=== PATIENT | female | born 1955 | race Caucasian/White ===

== ENCOUNTER 2024-03-15 06:29 | Day surgery (SDC) | payer MEDICARE ==
[2024-03-15] VITALS (11 sets, daily range): BP systolic 212–246; BP diastolic 88–115; PULSE 53–69; TEMP 97
[~2024-03-15] VITALS: Ht 167.6 cm; Wt 154.8 kg
[~2024-03-15 06:29] MED LIST: ALDACTONE 25MG25 M1 PO; ALEVE 220MG220 MG PO; ALLEGRA 180MG180 MG PO; BENADRYL25 M2 PO; HYDRODIURIL50 MG PO; KLOR-CON 88 MEQ PO; LASIX 20MG TABL20 MG PO; LEXAPRO20 MG PO; LODINE400 MG PO; NASONEX SPRAY17 GM NS; RT ADVAIR 228 DISKUS IH; SINGULAIR 110 MG/TAB PO; SKELAXIN 800MG800 MG PO; SUDAFED SINUS PO; SYNTHROID0.075 MG/T PO; TOPROL XL 25MG25 MG PO; VENTOLIN0.09 MG IH; VYTORIN 10 MG-21 TAB PO; XANAX .25M0.25 MG/TA PO; ZANTAC 150MG T150 MG PO
[2024-03-15] MEDS ORDERED: 1/2 NS 1,000 ML IV SCH (07:00)
[2024-03-15 08:18] LABS: HEMATOCRIT 38.2 % (37.0-47.0); HEMOGLOBIN 12.3 g/dl (12.5-16.0); MEAN CELL VOLUME 81 fl (80.0-100.0); MEAN CORPUSCULAR HEMOGLOBIN 26 pg (27-31); MEAN CORPUSCULAR HGB CONC 32 g/dl (33.0-37.0); MEAN PLATELET VOLUME 9.8 fl (7.4-10.4); PLATELET COUNT 301 K/mm3 (130-400); RED BLOOD COUNT 4.72 M/mm3 (4.10-5.30); REDCELL DISTRIBUTION WIDTH-CV 14.6 % (11.5-14.5)
[2024-03-15 08:30] LABS: INR 1.3 (0.8-3.0)
[2024-03-15] MEDS ORDERED: methylPREDNISolone Sod Succ 125 MG/2 ML VIAL IV ONE (08:30)
[2024-03-15] MEDS ORDERED: diphenhydrAMINE 50 MG/ML 1 ML VIAL IV ONE (08:30)
[2024-03-15 08:33] LABS: PARTIAL THROMBOPLASTIN TIME 34.8 SECONDS (26.0-37.0)
[2024-03-15 08:40] LABS: CALCIUM 9.3 mg/dL (8.4-10.2); CREATININE, serum 0.88 mg/dL (0.57-1.11)
[2024-03-15 08:47] LABS: POTASSIUM 2.9 mEq/L (3.5-4.5)
[2024-03-15] MEDS ORDERED: ASPIRIN 81M81 MG/TA2 PO (09:10)
[2024-03-15] MEDS ORDERED: 00186-0370-20 IH (09:21)
[2024-03-15] MEDS ORDERED: ALTACE 10MG TAB10 MG PO ×2 (09:21→10:40)
[2024-03-15] MEDS ORDERED: Heparin 1,000 UNITS/ML 10 ML Multi-Dose VIAL IV SCH (10:04)
[2024-03-15] MEDS ORDERED: Heparin 1,000 UNITS/ML 10 ML Multi-Dose VIAL IA SCH (10:05)
[2024-03-15] MEDS ORDERED: Nitroglycerin 100 MCG/ML (Cath Lab) 10 ML VIAL IA SCH (10:06)
[2024-03-15] MEDS ORDERED: Verapamil 2.5 MG/ML 2 ML VIAL IA SCH (10:07)
[2024-03-15] MEDS ORDERED: fentaNYL 50 MCG/ML 2 ML VIAL IV SCH (10:08)
[2024-03-15] MEDS ORDERED: Midazolam 2 MG/2 ML VIAL IV SCH (10:16)
[2024-03-15] MEDS ORDERED: Iohexol 350 - 100 ML VIAL INCOR ONE (10:19)
--- NOTE | 2024-03-15 10:41 | NUR ---
PATIENT ALERT AND ORIENTED, HYPERTENSION PERSISTS. PT TRANSFERRED TO BED VIA SLIDEBOARD AND TRANSPORTED TO [facility]. VITAL SIGNS TAKEN ON ARRIVAL, PROVIDER AT BEDSIDE TO DISCUSS PLAN OF CARE. TRANSFER OF CARE REPORT TO ROYAL JORDAN. RIGHT RADIAL SITE CDI. BED TO LOWEST POSITION, X3 BEDRAILS IN PLACE, CALL LIGHT PLACED WITHIN REACH. BROTHER AT BEDSIDE AND QUESTIONS INVITED.
--- NOTE | 2024-03-15 14:13 | NUR ---
Pt brought to [facility] by wheelchair, accompanied by brother. Pt was scheduled for a [facility]. EKG done. IV started, by AIVS. Meds and HX reviewed with the pt. Consent for the procedure signed. Pt was given pre-procedure meds for their contrast allergy. Post procedure the pt came back to [facility]. Right radial site assessed, site was clean, dry, and intact. Offered the pt something to eat and drink. Pt accepted a water and a meal was ordered. Pt was bedrest for about 2 hrs, once the bedrest was up the pt got up and used the restroom. Once the pt got back to bed air was released from the radial band. 2 mls about every 15 minutes. Once all the air was released a band-aid was applied. Site was clean, dry, and intact. The deflated radial band was applied as a reminder to limit extremity use. IV dc'd and the site was wrapped with coban. Discharge education and information discussed with the pt. No questions at the time. Pt exited the unit by wheelchair accompanied by the nurse and brother, to the [employer] car.
== END 2024-03-15 14:01 | disposition home or self-care (01) ==
LOC: COL.CAR 06:29
PROVIDERS: Internal Medicine Cardiovascular Disease
DX: R06.02 Shortness of breath (principal); I10 Essential (primary) hypertension
CPT/HCPCS: J1200; J1644; J2250; J2919; J3010; Q9967